=== PATIENT | female | born 1925 | race Caucasian/White ===

== ENCOUNTER 2016-08-03 02:54 | Emergency (ER) | payer OTHER, MEDICARE ==
[~2016-08-03] VITALS: Ht 157.5 cm; Wt 72.7 kg
[~2016-08-03 02:54] MED LIST: AMLODIPINE BESYL5 MG PO; BENAZEPRIL HCL20 MG PO; BUSPAR7.5 MG PO; CALCIUM 500 +1 EAC4 PO; DAILY VALUE1 EACH PO; LIDOCAINE700 MG TD; LORAZEPAM0.5 MG PO; LOVASTATIN40 MG PO; MEGARED OMEGA-1 EAC2 PO; METOPROLOL PO; METOPROLOL SUCC25 MG PO; OMEPRAZOLE20 MG PO; OXYCODONE HCL5 MG PO; PRESERVISION T1 EACH PO; ST. JOSEPH ASPI81 MG PO; TOPROL XL25 MG PO; VITAMIN C1000 MG PO
[2016-08-03 04:45] LABS: HEMATOCRIT 41.9 % (36.0-46.0); MCH 27.1 PG (29.0-34.0); MCHC 31.3 G/DL (30.0-36.0); MCV 86.6 FL (83-99); MEAN PLAT.VOLUME 9.7 uM^3 (9.5-12.4); PLATELET COUNT 292 K/uL (156-360); RBC DIS.WIDTH-SD 47.6 % (39-53); RED BLOOD COUNT 4.84 M/uL (3.80-5.20); WHITE BLOOD COUNT 9.1 K/uL (4.1-10.2)
[2016-08-03 04:59] LABS: CHLORIDE 107 mEq/L (99-109); POTASSIUM 3.8 mEq/L (3.7-5.4); SODIUM 140 mEq/L (136-147)
[2016-08-03 05:01] LABS: GLUCOSE 124 mg/dL (70-99)
[2016-08-03 05:03] LABS: ANION GAP 10 MEQ/L (2-14)
[2016-08-03] MEDS ORDERED: AZITHROMYCIN500 M1 PO (05:03)
[2016-08-03 05:05] LABS: GFR ESTIMATE (CALCULATED) 45 mL/min/
[2016-08-03 05:06] LABS: UREA NITROGEN (BUN) 9 mg/dL (9-23)
[2016-08-03 05:30] VITALS: BP 143/80
== END 2016-08-03 05:31 | disposition home or self-care (01) ==
LOC: EME 02:54
DX: J32.9 Chronic sinusitis, unspecified (principal); T36.0X5A Adverse effect of penicillins, initial encounter; R19.7 Diarrhea, unspecified; R55 Syncope and collapse; R07.0 Pain in throat; I10 Essential (primary) hypertension; E78.5 Hyperlipidemia, unspecified; Z79.82 Long term (current) use of aspirin; Z87.891 Personal history of nicotine dependence
CPT/HCPCS: 80048; 85027; 99281; 99283

== ENCOUNTER 2016-08-29 16:26 | Emergency (ER) | payer OTHER, MEDICARE ==
[~2016-08-29] VITALS: Ht 154.9 cm; Wt 72.0 kg
[~2016-08-29 16:26] MED LIST changes: +AZITHROMYCIN500 M1 PO
[2016-08-29 18:54] VITALS: BP 148/82
== END 2016-08-29 18:56 | disposition home or self-care (01) ==
LOC: EME 16:26
DX: M71.21 Synovial cyst of popliteal space [Baker], right knee (principal); I10 Essential (primary) hypertension; E78.5 Hyperlipidemia, unspecified; Z79.82 Long term (current) use of aspirin; Z87.891 Personal history of nicotine dependence
CPT/HCPCS: 93971; 99281; 99283